=== PATIENT | female | born 1935 | race Asian ===

== ENCOUNTER 2021-01-08 19:27 | Emergency (ER) | payer MEDICARE, OTHER ==
[~2021-01-08] VITALS: Ht 162.6 cm; Wt 49.9 kg
[~2021-01-08 19:27] MED LIST: ACET650S24 RC; ATROPINE 1% OP; BISA10SU11 RC; MORP20SO PO; POLY255P19 PO; haloperidol IM
--- NOTE | 2021-01-08 19:30 | NUR ---
PT BIB [facility] FROM [facility] FOR UNWITNESSED FALL. PT HX OF DEMENTIA AND NOTED TO BE NONVERBAL. SKIN INTACT, NO VISIBLE REDNESS/BRUISING/NO SKIN TEARS.
--- NOTE | 2021-01-08 19:32 | NUR ---
DR. CASILLAS AT BEDSIDE, MSE IN PROGRESS.
--- NOTE | 2021-01-08 20:00 | NUR ---
PT TAKEN DOWN FOR XRAYS.
[2021-01-08 20:08] LABS: *BILIRUBIN,URIN NEGATIVE (NEGATIVE); *BLOOD, URINE 2+ (NEGATIVE); *COLOR,URINE YELLOW (YELLOW); *KETONES,URINE 1+ (NEGATIVE); *UROBILINOGEN,URINE 0.2 E.U./dl (NORMAL); LEUKOCYTE ESTERASE ,URINE NEGATIVE (NEGATIVE); NITRITE, URINE NEGATIVE (NEGATIVE); PH,URINE 5.5 (5.0-8.0); UGLUCOSE NEGATIVE (NEGATIVE)
[2021-01-08 20:14] LABS: *CLARITY,URINE SLIGHTLY HAZY (CLEAR)
--- NOTE | 2021-01-08 20:14 | NUR ---
PT RETURNED FROM XRAY/CT'S, STABLE CONDITION.
[2021-01-08 20:15] LABS: BACTERIA,URINE FEW /HPF (NONE SEEN); RBC,URINE 20-50 /HPF (0-3); SQUAMOUS EPITHELIAL CELL,UR MODERATE /HPF (NONE SEEN)
[2021-01-08] MEDS ORDERED: CEPH250S PO (21:01)
--- NOTE | 2021-01-08 21:13 | NUR ---
Called [facility] ambulance for transport pt back to [facility], eta 1200.
--- NOTE | 2021-01-08 21:43 | NUR ---
PT RESTING COMFORTABLY IN BED, VSS. BREATHING EVEN AND UNLABORED.
--- NOTE | 2021-01-08 23:48 | NUR ---
Patient is resting comfortably in bed with eyes closed. VSS. Bed in lowest position for safety precautions.
--- NOTE | 2021-01-09 00:29 | NUR ---
[facility] AT BEDSIDE TO TRANSPORT PT BACK TO FACILITY.
--- NOTE | 2021-01-09 00:32 | NUR ---
Patient discharged back to facility in stable condition. Written and verbal after care instructions given to paramedics, verbalizes understanding of instructions. Stressed follow up or return to ER for worsening s/s.
[2021-01-09 00:33] VITALS: BP 115/88
== END 2021-01-09 00:34 ==
LOC: ER 19:31
DX: S40.812A Abrasion of left upper arm, initial encounter (principal); W18.30XA Fall on same level, unspecified, initial encounter; Y92.092 Bedroom in other non-institutional residence as the place of occurrence of the external cause; N39.0 Urinary tract infection, site not specified; F03.90 Unspecified dementia, unspecified severity, without behavioral disturbance, psychotic disturbance, mood disturbance, and anxiety; Z86.39 Personal history of other endocrine, nutritional and metabolic disease; Z87.448 Personal history of other diseases of urinary system; R94.31 Abnormal electrocardiogram [ECG] [EKG]
CPT/HCPCS: 70450; 72125; 87086; 93005; A4663; C1758